=== PATIENT | female | born 1975 | race Hispanic/Latino ===

== ENCOUNTER 2019-03-15 08:48 | Outpatient (CLI) | payer OTHER ==
--- NOTE | 2019-03-15 09:30 | XRay Report ---
RIGHT KNEE, 2 VIEWS INDICATION: RIGHT KNEE PAIN. COMPARISON: None. IMPRESSION: No acute osseous or soft tissue abnormality. No significant DJD. Normal exam. Signer Name: Lee Allen Jr, MD Signed: 03/15/2019 9:26 AM Workstation Name: [id number]
== END 2019-03-15 08:49 | disposition home or self-care (01) ==
LOC: XRAY 08:48
PROVIDERS: ATTEND Internal Medicine
DX: M25.561 Pain in right knee (principal)